=== PATIENT | female | born 1970 | race Caucasian/White ===

== ENCOUNTER 2017-10-11 10:58 | Emergency (ER) | payer OTHER ==
[2017-10-11 11:08] VITALS: RESP 16; TEMP 98.4
--- NOTE | 2017-10-11 12:42 | EDPHY ---
HPI/HX/ROS/PE/MDM Narrative: CHIEF COMPLAINT: Headache HISTORY OF PRESENT ILLNESS: This patient is a 46 year old female complaining of headache with lingering symptoms onset Saturday. She describes developing a "migraine" on Saturday around 3: 00pm with right-sided visual aura and associated nausea. She experienced word- finding difficulty, and felt she was saying the wrong words around 3:30. She took Advil, and her headache symptoms resolved in about three hours. Since that time, she has felt dizzy and "off" with intermittent blurred vision, photosensitivity and auditory sensitivity. Today she feels shaky and photosensitive. She denies diplopia. She endorses some current head pressure and congestion. She had two migraines with aura when she was in 2002 and history of headaches with neck tension, but has not had headaches associated with word finding difficulties. She has problems with her upper back and neck and endorses occasional paresthesias in her upper extremities. She denies any numbness or weakness in her arms or legs. She endorses some imbalance on Saturday but denies any falls or syncopal episodes. No fever, chills , chest pain, shortness of breath, palpitations, vomiting, diarrhea, urinary complaints. REVIEW OF SYSTEMS: Aside from elements discussed in the HPI, a comprehensive 10-point review of systems was reviewed and is negative. PAST MEDICAL HISTORY: Hypothyroid. SOCIAL HISTORY: Nonsmoker. Occasional alcohol use. No illicit drug use. . VITAL SIGNS: Reviewed by me GENERAL: Well-developed, well-nourished, resting comfortably in no respiratory distress. HEENT: Atraumatic. Eyes: No icterus, no injection. Mouth: moist mucous membranes. No erythema or lesions. Neck: supple with no adenopathy. LUNGS: Clear to auscultation bilaterally, no wheezes, rhonchi or rales. CARDIAC: Regular rate and rhythm, no rubs, murmurs or gallops. ABDOMEN: Soft, nontender, nondistended, bowel sounds normal. BACK: No CVA tenderness. EXTREMITIES: No trauma. No edema. Range of motion is normal throughout. NEURO: Alert and oriented, CN 2-12 intact, Normal motor and sensation. Normal [id number]. Fluent speech, no word finding difficulty or dysarthria. SKIN: Warm and dry, no rash. PSYCHIATRIC: Normal mentation, no agitation. Portions of this note were transcribed by a medical billing specialist. I personally performed a history, physical exam, medical decision making, and confirmed accuracy of information the transcribed note. ED Course: 46 year old female presents with four day history of lingering headache/ migraine symptoms. At time of headache onset, patient experienced dysarthria and word finding difficulty, now resolved. Exam unremarkable, normal neurologic exam. The patient declines IV at this time. Does not wish any evaluation other than to evaluate for cva/tia. Plan to administer 25mg PO Meclizine and 8mg PO Decadron for symptom relief. Plan for MRI brain. 14:[address] Espinosa, radiologist. MRI negative for acute processes. Suspect migraine with word finding difficulties. Hypertension present at arrival improved throughout course. 14:55 Reassessed patient. She now complains of some increased neck stiffness and pain. Plan to administer 30mg IM Toradol for symptom relief. Plan to discharge home in good condition with prescription for meclizine, follow up with neurology. Return precautions discussed. The patient is comfortable with this plan. MDM: Diff dx considered included migraine, tia, cva, electrolyte abnormalities, MS. - Data Points Imaging Results: MRI Brain: Impression: Mild chronic sinus related change. Otherwise, normal MRI of the brain without contrast. Results called and discussed with Hallie Blackburn MD at 10/11/2017 14:52. Dictated By: Jon Espinosa MD Imaging: Discussed imaging studies w/ call or contact centre manager Radiologist Medications Given: Discontinued Medications Dexamethasone (Decadron) 8 mg PO EDNOW ONE Stop: 10/11/17 13:14 Last Admin: 10/11/17 13:47 Dose: 8 mg Ketorolac Tromethamine (Toradol) 30 mg IM EDNOW ONE Stop: 10/11/17 14:58 Last Admin: 10/11/17 15:25 Dose: 30 mg Meclizine HCl (Meclizine Hcl) 25 mg PO EDNOW ONE Stop: 10/11/17 13:14 Last Admin: 10/11/17 13:47 Dose: 25 mg General Time Seen by Provider: 10/11/17 12:34 Initial Vital Signs: Initial Vital Signs Temperature (C) 36.9 C 10/11/17 11:03 Heart Rate 92 10/11/17 11:03 Respiratory Rate 16 10/11/17 11:03 Blood Pressure 186/98 H 10/11/17 11:03 O2 Sat (%) 99 10/11/17 11:03 O2 Delivery Mode Room Air Allergies/Adverse Reactions: codeine Allergy (Verified 10/11/17 11:02) Home Medications: Medication Instructions Recorded Loratadine 10/11/17 Meclizine HCl [Meclizine HCl 25 mg 12.5 - 25 mg PO BID #30 tab 10/11/17 (RX,OTC)] Synthroid 10/11/17 Departure - Departure Disposition: Home, Routine, Self-Care Clinical Impression: Atypical migraine Condition: Good Instructions: Migraine Headache (ED) Additional Instructions: 1. Follow up with neurology for continued evaluation. We have referred you to our neurologist air conditioning mechanic. 2. Take Meclizine as prescribed as needed for dizziness. This medication is also available over the counter should you need it in the future. 3. You may continue to take Advil as directed on the packaging as needed for pain. 4. Return to the emergency department for increased pain, dizziness, fainting, weakness or numbness in your extremities, repeated word-finding difficulty, fever, chest pain, shortness of breath, or other worsening of condition. I recommend Ibuprofen (Motrin, Advil) or Naproxen Sodium (Aleve) for pain and anti-inflammatory effects. You may take either one, but do not take both. Your dose is: Ibuprofen 600 mg every 6-8 hours with food. OR Naproxen Sodium (Aleve) 220 mg every 12 hours. Referrals: Mary Kumar MD [Primary Care Provider] - As per Instructions Tristan Chapa DO [Doctor of Osteopathy] - As per Instructions Prescriptions: Meclizine HCl [Meclizine HCl 25 mg (RX,OTC)] 12.5 - 25 mg PO BID #30 tab Report Scribed for: Hallie Blackburn Report Scribed by: Lubna Soto Date of Report: 10/11/17 Time of Report: 12:43
[2017-10-11] MEDS ORDERED: MECLIZINE HCL 25 MG TAB PO ONE (13:13)
[2017-10-11] MEDS ORDERED: DEXAMETHASONE 4 MG TAB PO ONE (13:13)
[2017-10-11] MEDS ORDERED: KETOROLAC 30 MG/1 ML SDV IM ONE (14:57)
[2017-10-11 15:45] VITALS: BP 130/95; PULSE 78; O2SAT 96
== END 2017-10-11 15:44 | disposition home or self-care (01) ==
DX: G43.809 Other migraine, not intractable, without status migrainosus (principal)
CPT/HCPCS: J1885

== ENCOUNTER → 2017-10-21 | Outpatient (CLI) | payer OTHER | LOC: FLAB 10:47 | PROVIDERS: ATTEND Family Medicine | DX: R42 Dizziness and giddiness (principal); F41.9 Anxiety disorder, unspecified ==

== ENCOUNTER → 2019-02-11 | Outpatient (CLI) | payer OTHER | LOC: FIMAGING 12:42 | PROVIDERS: ATTEND Family Medicine | DX: R10.31 Right lower quadrant pain (principal) ==